=== PATIENT | female | born 1995 | race Caucasian/White ===

== ENCOUNTER 2020-02-01 09:43 | Outpatient (CLI) | payer MEDICAID ==
[2020-02-01 10:40] LABS: ABSOLUTE EOSINOPHILS # (AUTO) 0.5 10^3/uL (0.0-0.6); ABSOLUTE LYMPHOCYTES (AUTO) 1.5 10^3/uL (0.5-4.7); ABSOLUTE MONOCYTES (AUTO) 0.9 10^3/uL (0.1-1.4); ABSOLUTE NEUT (AUTO) 9.3 10^3/uL (1.7-8.2); BASOPHILS % (AUTO) 0.4 % (0-2); EOSINOPHILS % (AUTO) 4.3 % (0-6); HEMATOCRIT 28.3 % (36.0-47.0); HEMOGLOBIN 9.8 g/dL (12.0-15.5); LYMPHOCYTES % (AUTO) 12.3 % (13-45); MEAN CORPUSCULAR HGB CONC 34.8 g/dL (32.0-36.0); MEAN CORPUSCULAR VOLUME 78 fl (80-97); MONOCYTES % (AUTO) 7.5 % (3-13); PLATELET COUNT 153 10^3/uL (150-450); RED BLOOD COUNT 3.64 10^6/uL (3.72-5.28); RED CELL DISTRIBUTION WIDTH 14.6 % (11.5-14.0); SEGMENTED NEUTROPHILS % (AUTO) 75.5 % (42-78); TOTAL CELLS COUNTED % (AUTO) 100 %; WHITE BLOOD COUNT 12.3 10^3/uL (4.0-10.5)
[2020-02-01] MEDS ORDERED: ACETAMINOPHEN 325 MG TABLET PO ONE (10:43)
[2020-02-01] MEDS ORDERED: ACETAMINOPHEN 325 MG TABLET ONE (10:44)
[2020-02-01 11:04] LABS: UR PRO/CREAT RATIO RESULT 0.2 mg/mg (0.0-0.2); URINE CREATININE 54.4 mg/dL (16-327); URINE PROTEIN 10.9 mg/dL (<12)
[2020-02-01 11:08] LABS: ALBUMIN 2.7 g/dL (3.5-5.0); ALKALINE PHOSPHATASE 110 U/L (38-126); ANION GAP 7 (5-19); ASPARTATE AMINO TRANSFERASE 25 U/L (14-36); BILIRUBIN,DIRECT 0.1 mg/dL (0.0-0.4); BILIRUBIN,TOTAL 0.4 mg/dL (0.2-1.3); BLOOD UREA NITROGEN 6 mg/dL (7-20); CALCIUM 8.6 mg/dL (8.4-10.2); CARBON DIOXIDE 21 mmol/L (22-30); CHLORIDE 106 mmol/L (98-107); GLUCOSE 80 mg/dL (75-110); POTASSIUM 3.9 mmol/L (3.6-5.0); TOTAL PROTEIN 5.2 g/dL (6.3-8.2); URIC ACID 4.6 mg/dL (2.5-6.2)
[2020-02-01 11:12] LABS: APPEARANCE,URINE TURBID; BILIRUBIN,URINE NEGATIVE (NEGATIVE); COLOR,URINE STRAW; GLUCOSE, URINE NEGATIVE (NEGATIVE); KETONES,URINE NEGATIVE (NEGATIVE); PROTEIN,URINE NEGATIVE (NEGATIVE); URINE SPECIFIC GRAVITY 1.013; UROBILINOGEN,URINE NEGATIVE mg/dL (<2.0)
[2020-02-01 11:13] LABS: ADD MANUAL MICROSCOPIC YES; BACTERIA,URINE 4+ /HPF; LEUKOCYTE ESTERASE,URINE LARGE (NEGATIVE); NITRITE,URINE NEGATIVE (NEGATIVE); RBC,URINE NONE SEEN /HPF; WBC,URINE >100 /HPF
[2020-02-01 11:18] LABS: URINE AMPHETAMINES SCREEN NEGATIVE; URINE BARBITURATES SCREEN NEGATIVE; URINE BENZODIAZEPINES SCREEN NEGATIVE; URINE COCAINE SCREEN NEGATIVE; URINE MARIJUANA (THC) SCREEN NEGATIVE; URINE METHADONE SCREEN NEGATIVE; URINE PHENCYCLIDINE SCREEN NEGATIVE
--- NOTE | 2020-02-01 11:50 | Non Stress Test Report ---
Non Stress Test Datetime Report Generated by CPN: 02/01/2020 11:50 INDICATION Indication for Study (NST) Other: Pre E workup VITAL SIGNS Temperature - NST: 98.0 Pulse - NST: 94 RESP - NST: 18 NBPSYS NST: 146 NBPDIA NST: 81 MONITORING Monitor Explained: Monitor Explained; Test Explained; Patient Verbalized Understanding Time on Monitor: 02/01/2020 10:02 Time off Monitor: 02/01/2020 11:28 NST Duration: 86 NST INTERVENTIONS NST Interventions: PO Hydration Physician Notified NST: C. Birmingham, CNM BABY A: [id number] BABY A Movement : Present Contraction Frequency : none FHR Baseline : 135 Accelerations : 15X15 Decelerations : None Variability : Moderate 6-25bpm NST Review: Meets Criteria for Reactive NST NST Review and Verified By : Toy James RN NST COMMENTS NST Comments: C. Birmingham, CNM on unit reviewed strip. NST REPORT Report Trigger: Send Report
== END 2020-02-01 11:43 | disposition home or self-care (01) ==
LOC: LC 09:43
PROVIDERS: ATTEND Obstetrics & Gynecology
DX: Z36.89 Encounter for other specified antenatal screening (principal); Z3A.35 35 weeks gestation of pregnancy
CPT/HCPCS: 59025; 36415; 83615; 84156; 84550; 82570; 85025; 80053; 81001; 80307; 82239; J3490

== ENCOUNTER → 2020-02-09 | Outpatient (CLI) | payer MEDICAID ==
[2020-02-09 11:52] LABS: APPEARANCE,URINE CLEAR; BILIRUBIN,URINE NEGATIVE (NEGATIVE); COLOR,URINE YELLOW; GLUCOSE, URINE NEGATIVE (NEGATIVE); KETONES,URINE NEGATIVE (NEGATIVE); LEUKOCYTE ESTERASE,URINE NEGATIVE (NEGATIVE); NITRITE,URINE NEGATIVE (NEGATIVE); PROTEIN,URINE NEGATIVE (NEGATIVE); URINE SPECIFIC GRAVITY 1.009; UROBILINOGEN,URINE NEGATIVE mg/dL (<2.0)
[2020-02-09 12:01] LABS: URINE AMPHETAMINES SCREEN NEGATIVE; URINE BARBITURATES SCREEN NEGATIVE; URINE BENZODIAZEPINES SCREEN NEGATIVE; URINE COCAINE SCREEN NEGATIVE; URINE MARIJUANA (THC) SCREEN NEGATIVE; URINE METHADONE SCREEN NEGATIVE
[2020-02-09 12:06] LABS: URINE PHENCYCLIDINE SCREEN NEGATIVE
--- NOTE | 2020-02-09 12:38 | Non Stress Test Report ---
Non Stress Test Datetime Report Generated by CPN: 02/09/2020 12:38 DEMOGRAPHIC EGA NST: 37.0 INDICATION Indication for Study (NST) Other: Possible SROM, >32 weeks IUP MONITORING Monitor Explained: Monitor Explained; Test Explained; Patient Verbalized Understanding Time on Monitor: 02/09/2020 11:11 Time off Monitor: 02/09/2020 12:21 NST Duration: 70 NST INTERVENTIONS NST Interventions: PO Hydration Physician Notified NST: A Santiago CNM BABY A: [id number] BABY A Movement : Present Contraction Frequency : irritability FHR Baseline : 135 Accelerations : 15X15 Decelerations : None Variability : Moderate 6-25bpm NST Review: Meets Criteria for Reactive NST NST Review and Verified By : JNiebuhr,RN NST Results: Reactive NST REPORT Report Trigger: Send Report
== END ==
LOC: LC 10:52
PROVIDERS: ATTEND Obstetrics & Gynecology
DX: Z36.89 Encounter for other specified antenatal screening (principal); Z3A.37 37 weeks gestation of pregnancy
CPT/HCPCS: 59025; 80307; 81001; 84112

== ENCOUNTER 2020-02-20 21:34 | Inpatient (IN) | payer MEDICAID ==
[2020-02-20] MEDS ORDERED: RINGERS SOLUTION,LACTATED 1,000 ML IV PRN (22:22)
[2020-02-20] MEDS ORDERED: AMPICILLIN SOD INJ 2 GM VIAL ONE (22:29)
[2020-02-20 22:52] LABS: ABSOLUTE BASOPHILS # (AUTO) 0.1 10^3/uL (0.0-0.2); ABSOLUTE EOSINOPHILS # (AUTO) 0.5 10^3/uL (0.0-0.6); ABSOLUTE LYMPHOCYTES (AUTO) 1.7 10^3/uL (0.5-4.7); ABSOLUTE MONOCYTES (AUTO) 0.8 10^3/uL (0.1-1.4); ABSOLUTE NEUT (AUTO) 10.2 10^3/uL (1.7-8.2); BASOPHILS % (AUTO) 0.4 % (0-2); EOSINOPHILS % (AUTO) 3.5 % (0-6); HEMATOCRIT 32.2 % (36.0-47.0); HEMOGLOBIN 10.8 g/dL (12.0-15.5); LYMPHOCYTES % (AUTO) 12.8 % (13-45); MEAN CORPUSCULAR HEMOGLOBIN 25.7 pg (27.0-33.4); MEAN CORPUSCULAR HGB CONC 33.5 g/dL (32.0-36.0); MEAN CORPUSCULAR VOLUME 77 fl (80-97); MONOCYTES % (AUTO) 6.3 % (3-13); PLATELET COUNT 218 10^3/uL (150-450); RED BLOOD COUNT 4.19 10^6/uL (3.72-5.28); RED CELL DISTRIBUTION WIDTH 16.3 % (11.5-14.0); TOTAL CELLS COUNTED % (AUTO) 100 %; WHITE BLOOD COUNT 13.2 10^3/uL (4.0-10.5)
[2020-02-20 22:54] LABS: APPEARANCE,URINE SLIGHTLY-CLOUDY; BILIRUBIN,URINE NEGATIVE (NEGATIVE); COLOR,URINE YELLOW; GLUCOSE, URINE NEGATIVE (NEGATIVE); KETONES,URINE NEGATIVE (NEGATIVE); LEUKOCYTE ESTERASE,URINE MODERATE (NEGATIVE); NITRITE,URINE NEGATIVE (NEGATIVE); PROTEIN,URINE NEGATIVE (NEGATIVE); URINE SPECIFIC GRAVITY 1.004; UROBILINOGEN,URINE NEGATIVE mg/dL (<2.0)
[2020-02-20] MEDS ORDERED: RINGERS SOLUTION,LACTATED 1,000 ML IV ONE (23:00)
[2020-02-20] MEDS ORDERED: AMPICILLIN SODIUM 2 GM in NORMAL SALINE 100 ML IV ONE (23:00)
[2020-02-20 23:08] LABS: URINE AMPHETAMINES SCREEN NEGATIVE; URINE BARBITURATES SCREEN NEGATIVE; URINE BENZODIAZEPINES SCREEN NEGATIVE; URINE COCAINE SCREEN NEGATIVE; URINE MARIJUANA (THC) SCREEN NEGATIVE; URINE METHADONE SCREEN NEGATIVE; URINE PHENCYCLIDINE SCREEN NEGATIVE
[2020-02-20] MEDS ORDERED: OXYTOCIN 10 UNIT/ML VIAL ONE (23:22)
[2020-02-20] MEDS ORDERED: OXYTOCIN/0.9 % SODIUM CHLORIDE 30 UNIT/500 ML RTUINJ ONE (23:22)
[2020-02-20] MEDS ORDERED: LIDOCAINE 1% INJ-PF (10 MG/ML) 30 ML SDV ONE (23:22)
[2020-02-20] MEDS ORDERED: MISOPROSTOL 0.2 MG TABLET ONE (23:22)
--- NOTE | 2020-02-20 23:29 | Admission Physical ---
Datetime Report Generated by CPN: 02/20/2020 23:28 CURRENT ADMISSION Chief Complaint: Suspected Ruptured Membranes Indication for Induction: Not Applicable Admit Impression : Term, Intrauterine ; Active Labor Admit Plan: Admit to Unit; Initiate Labor Protocol ALLERGIES Medication Allergies: No Medication Allergies: No Known Allergies (02/09/2020) Latex: No Latex Allergies Food Allergies: none Environmental Allergies: none OBSTETRICAL HISTORY EDC: 03/01/2020 00:00 : 2 Para: 1 Term: 1 : 0 SAB: 0 IAB: 0 Livin Gestational Diabetes: No Rh Sensitization: No Incompetent Cervix: No FABIÁN: No Infertility: No ART Treatment: No Uterine Anomaly: No IUGR: No Hx Previous C/S: No Macrosomia: No Hx Loss/Stillborn: No PIH: No Hx : No Placenta Previa/Abruption: No Depression/PP Depression: Yes PTL/PROM: No Post Hemorrhage: No Current Procedures: Ultrasound; NST Obstetrical History Comments: 06/05/2019, 40 weeks, vaginal, male, epidural G2-current SEE RECORDS Alcohol: No Marijuana : No Cocaine: No Other Illicit Drugs: No Cigarettes: Current Everyday Smoker. [id number] Cigarette Comments: juul twice a day MEDICAL HISTORY Diabetes: No Blood Transfusion: No Pulmonary Disease (Asthma, TB): Yes Breast Disease: No Hypertension: No Hemmer Lockstitch Surgery: No Heart Disease: No Hosp/Surgery: Yes Autoimmune Disorder: No Anesthetic Complications: No Kidney Disease: No Abnormal Pap Smear: No Neuro/Epilepsy: No Psychiatric Disorders: No Other Medical Diseases: No Hepatitis/Liver Disease: No Significant Family History: No Varicosities/Phlebitis: No Trauma/Violence : No Medical History Comments: multiple oral surgeries INFECTIOUS HISTORY Gonorrhea: No Genital Herpes: No Chlamydia: No Tuberculosis: No Syphilis: No Hepatitis: No HIV/AIDS Exposure: No Rash or Viral Illness: No HPV: No PHYSICAL EXAM General: Normal HEENT: Normal Neurologic: Normal Thyroid: Normal Heart: Normal Lungs: Normal Breast: Deferred Back: Normal Abdomen: Normal Genitourinary Exam: Normal Extremities: Normal DTRs: Normal Pelvic Type: Adequate Vital Signs: Reviewed VAGINAL EXAM Dilatation: 2 Effacement: 50 Station: -2 MEMBRANES Pooling: Positive Membranes: Ruptured FETUS A EGA: 38.4 Monitoring: External US FHR- Baseline: 140 Variability: Moderate 6-25bpm Accelerations: 15X15 Decelerations: None FHR Category: Category I Presentation: Vertex Admit Comment: admit for labor PLANS FOR LABOR AND DELIVERY Labor and Delivery: None Pain Management: Epidural Feeding Preference: Breast Benefit of Breast Feed Discussed: Yes Circumcision: Yes INFORMED CONSENT Signature: with User ID: [email or web address]
[2020-02-21] MEDS ORDERED: OXYTOCIN/0.9 % SODIUM CHLORIDE 30 UNIT/500 ML RTUINJ IV PRN ×2 (01:54→15:06)
[2020-02-21] MEDS ORDERED: AMPICILLIN SOD INJ 1 GM VIAL ONE ×2 (04:47→11:03)
[2020-02-21] MEDS ORDERED: NALBUPHINE HCL INJ 10 MG/1 ML AMPULE INJ ONE (08:14)
[2020-02-21] MEDS ORDERED: NALBUPHINE HCL INJ 10 MG/1 ML AMPULE ONE (08:18)
[2020-02-21] MEDS ORDERED: EPHEDRINE SULFATE INJ 50 MG/1 ML AMPULE ONE (10:44)
[2020-02-21] MEDS ORDERED: BUPIVACAINE HCL 0.25 % INJ/PF (2.5 MG/1 ML) 30 ML VIAL ONE (10:45)
[2020-02-21] MEDS ORDERED: FENTANYL/BUPIVACAINE/NS/PF 300 MCG/150 ML RTUINJ EPI ONE (10:45)
[2020-02-21] MEDS ORDERED: LIDOCAINE 1% INJ-PF (10 MG/ML) 30 ML SDV ONE (11:50)
[2020-02-21] MEDS ORDERED: METHYLERGONOVINE MALEATE INJ/PF 0.2 MG/1 ML AMPULE ONE (15:01)
[2020-02-21] MEDS ORDERED: MAGNESIUM HYDROXIDE SUSP 30 ML UDCUP PO PRN (15:06)
[2020-02-21] MEDS ORDERED: PROMETHAZINE HCL INJ 25 MG/1 ML VIAL IV PRN (15:06)
[2020-02-21] MEDS ORDERED: DIPH/PERTUSS(ACELL)/TETANUS VAC/PF 0.5 ML SYR (>=10YO) IM PRN (15:06)
[2020-02-21] MEDS ORDERED: PROMETHAZINE HCL 25 MG SUPP.RECT PR PRN (15:06)
[2020-02-21] MEDS ORDERED: GLYCERIN/WITCH HAZEL LEAF 1 EACH MED..WIPE TP PRN (15:06)
[2020-02-21] MEDS ORDERED: DIPHENHYDRAMINE HCL 25 MG CAPSULE PO PRN (15:06)
[2020-02-21] MEDS ORDERED: MISOPROSTOL 0.2 MG TABLET PR PRN (15:06)
[2020-02-21] MEDS ORDERED: MEASLES,MUMPS&RUBELLA VACC/PF 0.5 ML VIAL SUBCUT PRN (15:06)
[2020-02-21] MEDS ORDERED: PROMETHAZINE HCL 25 MG TABLET PO PRN (15:06)
[2020-02-21] MEDS ORDERED: BENZOCAINE/MENTHOL AEROSOL SPRAY 56 ML TOP PRN (15:06)
[2020-02-21] MEDS ORDERED: PSEUDOEPHEDRINE HCL 30 MG TABLET PO PRN (15:06)
[2020-02-21] MEDS ORDERED: DIBUCAINE 1% OINTMENT 28 GM TP PRN (15:06)
[2020-02-21] MEDS ORDERED: ZOLPIDEM TARTRATE 5 MG TABLET PO PRN (15:06)
[2020-02-21] MEDS ORDERED: ACETAMINOPHEN 650 MG SUPP.RECT PR PRN (15:06)
[2020-02-21] MEDS ORDERED: ACETAMINOPHEN WITH CODEINE #3 TABLET PO PRN ×2 (15:06)
[2020-02-21] MEDS ORDERED: NA PHOS,M-B/NA PHOS,DI-BA (ADULT) 133 ML ENEMA PR PRN (15:06)
[2020-02-21] MEDS ORDERED: BENZOCAINE/MENTHOL AEROSOL SPRAY 56 ML ONE (16:05)
[2020-02-21] MEDS ORDERED: IBUPROFEN 800 MG TABLET ONE (16:05)
[2020-02-21] MEDS: FERROUS SULFATE 325 MG TABLET PO SCH (18:06)
[2020-02-21] MEDS: DOCUSATE SODIUM 100 MG CAPSULE PO SCH (18:06)
[2020-02-21] MEDS: AMPICILLIN SODIUM 1 GM in NORMAL SALINE 50 ML IV SCH (18:46)
[2020-02-21] MEDS: FAMOTIDINE 20 MG TABLET PO SCH (22:42)
[2020-02-21] MEDS: IBUPROFEN 800 MG TABLET PO SCH (22:43)
[2020-02-22] MEDS: IBUPROFEN 800 MG TABLET PO SCH ×3 (05:21→21:22)
[2020-02-22 07:36] LABS: HEMATOCRIT 27.7 % (36.0-47.0); HEMOGLOBIN 9.3 g/dL (12.0-15.5); MEAN CORPUSCULAR HEMOGLOBIN 25.9 pg (27.0-33.4); MEAN CORPUSCULAR HGB CONC 33.5 g/dL (32.0-36.0); MEAN CORPUSCULAR VOLUME 77 fl (80-97); PLATELET COUNT 226 10^3/uL (150-450); RED BLOOD COUNT 3.59 10^6/uL (3.72-5.28); RED CELL DISTRIBUTION WIDTH 16.5 % (11.5-14.0)
[2020-02-22] MEDS: SENNOSIDES/DOCUSATE 8.6-50 MG 1 EACH TABLET PO SCH (09:38)
[2020-02-22] MEDS: PRENATAL VITAMIN W DHA CAPSULE PO SCH (09:38)
[2020-02-22] MEDS: FERROUS SULFATE 325 MG TABLET PO SCH ×2 (09:38→17:29)
[2020-02-22] MEDS: DOCUSATE SODIUM 100 MG CAPSULE PO SCH ×2 (09:38→17:29)
[2020-02-22] MEDS: FAMOTIDINE 20 MG TABLET PO SCH ×2 (09:38→21:22)
--- NOTE | 2020-02-22 11:41 | PDOC PROGRESS REPORT ---
Subjective-OB Progress Note for:: 02/22/20 Subjective: 24yo G2 now P2 s/p ppd 1 ambulating, voiding without difficulty. Reports pain well controlled with medication, denies any concerns today. Pt in and out of sleep, reports baby in the NICU. Physical Exam (OB) Vital Signs: Temp Pulse Resp BP Pulse Ox 97.7 F 94 18 121/63 99 02/22/20 07:13 02/22/20 07:13 02/22/20 07:13 02/22/20 08:10 02/22/20 07:13 Intake & Output 02/21/20 02/22/20 02/23/20 06:59 06:59 06:59 Weight 118.3 kg - General General Appearance: Appears well In distress: None - PIH/Pre-Eclampsia Headache: Absent - Episiotomy/Laceration Site Condition: N/A - Lochia Lochia Amount: Small 10-25 ml Lochia Color: Rubra/Red - Abdomen Description: Soft Hernia Present: No Fundal Description: Firm, Midline Fundal Height: u/u - u/2 - Respiratory Respiratory Status: No respiratory distress - Extremities Upper extremity: Normal inspection Lower extremities: Normal inspection - Neurological Cognition: Normal Orientation: AAOx4 - Psychological Associated symptoms: Normal affect, Normal mood Objective-Diagnostic Laboratory: 02/22/20 06:43 02/22/20 06:43 WBC 14.0 H RBC 3.59 L Hgb 9.3 L Hct 27.7 L MCV 77 L MCH 25.9 L MCHC 33.5 RDW 16.5 H Plt Count 226 Assessment and Plan(PN) - Assessment and Plan (1) Anemia complicating , third trimester Is this a current diagnosis for this admission?: Yes Plan: increase dietary iron and FeSO4 BID (2) Prolonged rupture of membranes, greater than 24 hours, delivered Is this a current diagnosis for this admission?: Yes Plan: delivered (3) Smoker Is this a current diagnosis for this admission?: Yes Plan: cessation encouraged (4) Shoulder dystocia during labor and delivery, delivered Is this a current diagnosis for this admission?: Yes Plan: baby remains in NICU, stable - Time Spent with Patient Time with patient: Less than 15 minutes Smoking Education Provided: Over 3 minutes Medications reviewed and adjusted accordingly: Yes - Disposition Anticipated Discharge: Home Within: within 24 hours
[2020-02-23] MEDS: IBUPROFEN 800 MG TABLET PO SCH ×2 (05:06→14:57)
--- NOTE | 2020-02-23 09:52 | PDOC DISCHARGE SUMMARY ---
Impression - Admit/DC Date/PCP Admission Date/Primary Care Provider: 02/20/20 22:23 HUGO LIANG MD Discharge Date: 02/23/20 - Discharge Diagnosis (1) Prolonged rupture of membranes, greater than 24 hours, delivered Is this a current diagnosis for this admission?: Yes (2) Shoulder dystocia during labor and delivery, delivered Is this a current diagnosis for this admission?: Yes (3) Smoker Is this a current diagnosis for this admission?: Yes - Additional Information Discharge Diet: Regular Discharge Activity: Balance Activity w/Rest, Pelvic Rest Referrals: HUGO LIANG MD [Primary Care Provider] - Prescriptions: Fluticasone/Salmeterol [Advair 500-50 Diskus 14 Dose/Diskus] 1 inh IH Q12H #1 inhaler Ibuprofen [Motrin 800 mg Tablet] 800 mg PO Q8HP PRN #60 tablet PRN Reason: Albuterol Sulfate [Proair Digihaler] 90 mcg IH Q4HP PRN #1 aer.pw.bas PRN Reason: Home Medications: Duloxetine HCl [Cymbalta] 1 tab PO DAILY 02/09/20 Vit No.130/Iron/Folic [ Tablet] 1 each PO DAILY 02/09/20 Albuterol Sulfate [Proair Digihaler] 90 mcg IH Q4HP PRN #1 aer.pw.bas 02/23/20 Fluticasone/Salmeterol [Advair 500-50 Diskus 14 Dose/Diskus] 1 inh IH Q12H #1 inhaler 02/23/20 Ibuprofen [Motrin 800 mg Tablet] 800 mg PO Q8HP PRN #60 tablet 02/23/20 Results Laboratory Results: WBC 14.0 10^3/uL (4.0-10.5) H 02/22/20 06:43 RBC 3.59 10^6/uL (3.72-5.28) L 02/22/20 06:43 Hgb 9.3 g/dL (12.0-15.5) L 02/22/20 06:43 Hct 27.7 % (36.0-47.0) L 02/22/20 06:43 MCV 77 fl (80-97) L 02/22/20 06:43 MCH 25.9 pg (27.0-33.4) L 02/22/20 06:43 MCHC 33.5 g/dL (32.0-36.0) 02/22/20 06:43 RDW 16.5 % (11.5-14.0) H 02/22/20 06:43 Plt Count 226 10^3/uL (150-450) 02/22/20 06:43 Lymph % (Auto) 12.8 % (13-45) L 02/20/20 22:41 Becker % (Auto) 6.3 % (3-13) 02/20/20 22:41 Eos % (Auto) 3.5 % (0-6) 02/20/20 22:41 Baso % (Auto) 0.4 % (0-2) 02/20/20 22:41 Absolute Neuts (auto) 10.2 10^3/uL (1.7-8.2) H 02/20/20 22:41 Absolute Lymphs (auto) 1.7 10^3/uL (0.5-4.7) 02/20/20 22:41 Absolute Monos (auto) 0.8 10^3/uL (0.1-1.4) 02/20/20 22:41 Absolute Eos (auto) 0.5 10^3/uL (0.0-0.6) 02/20/20 22:41 Absolute Basos (auto) 0.1 10^3/uL (0.0-0.2) 02/20/20 22:41 Seg Neutrophils % 77.0 % (42-78) 02/20/20 22:41 Urine Color YELLOW 02/20/20 21:45 Urine Appearance SLIGHTLY-CLOUDY 02/20/20 21:45 Urine pH 7.0 (5.0-9.0) 02/20/20 21:45 Ur Specific [place] 1.004 02/20/20 21:45 Urine Protein NEGATIVE mg/dL (NEGATIVE) 02/20/20 21:45 Urine Glucose (UA) NEGATIVE mg/dL (NEGATIVE) 02/20/20 21:45 Urine Ketones NEGATIVE mg/dL (NEGATIVE) 02/20/20 21:45 Urine Blood SMALL (NEGATIVE) H 02/20/20 21:45 Urine Nitrite NEGATIVE (NEGATIVE) 02/20/20 21:45 Urine Bilirubin NEGATIVE (NEGATIVE) 02/20/20 21:45 Urine Urobilinogen NEGATIVE mg/dL (<2.0) 02/20/20 21:45 Ur Leukocyte Esterase MODERATE (NEGATIVE) H 02/20/20 21:45 Urine WBC (Auto) 4 /HPF 02/20/20 21:45 Urine RBC (Auto) 1 /HPF 02/20/20 21:45 Urine Bacteria (Auto) TRACE /HPF 02/20/20 21:45 Squamous Epi Cells Auto 2 /HPF 02/20/20 21:45 Urine Ascorbic Acid NEGATIVE (NEGATIVE) 02/20/20 21:45 Membranes Rupture POSITIVE (NEGATIVE) H 02/20/20 22:00 Urine Opiates Screen NEGATIVE 02/20/20 21:45 Urine Methadone Screen NEGATIVE 02/20/20 21:45 Ur Barbiturates Screen NEGATIVE 02/20/20 21:45 Ur Phencyclidine Scrn NEGATIVE 02/20/20 21:45 Ur Amphetamines Screen NEGATIVE 02/20/20 21:45 U Benzodiazepines Scrn NEGATIVE 02/20/20 21:45 Urine Cocaine Screen NEGATIVE 02/20/20 21:45 U Marijuana (THC) Screen NEGATIVE 02/20/20 21:45 RPR NONREACTIVE (NONREACTIVE) 02/20/20 22:41 Blood Type A POSITIVE 02/20/20 22:41 Antibody Screen NEGATIVE 02/20/20 22:41 Plan Plan of Treatment: follow up in one week at [facility] for blood pressure check
[2020-02-23] MEDS: PRENATAL VITAMIN W DHA CAPSULE PO SCH (10:10)
[2020-02-23] MEDS: FERROUS SULFATE 325 MG TABLET PO SCH (10:10)
[2020-02-23] MEDS: FAMOTIDINE 20 MG TABLET PO SCH (10:10)
[2020-02-23] MEDS: DOCUSATE SODIUM 100 MG CAPSULE PO SCH (10:10)
[2020-02-23] MEDS: SENNOSIDES/DOCUSATE 8.6-50 MG 1 EACH TABLET PO SCH (10:10)
[2020-02-23 11:48] VITALS: BP 121/63
--- NOTE | 2020-02-24 10:55 | Delivery Summary ---
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: ST Cristin Additional Personnel: : Sam PATEL RN/ Sam VELARDE RN MATERNAL INFORMATION Delivery Anesthesia: Epidural Medications After Delivery: Pitocin 30 Units in 500ml NS/D5W; Methergine 0.2mg IM; Cytotec 1000mcg Per Rectum/Vagina Delivery QBL: 450 Maternal Complications: Other Complication Details: SROM 02/19 @ 0200 Provider Comments: Baby rotated and pt started pushing, at delivery of vtx ROBBI,gentle lateral traction without delivery of vertex, turtle sign, shoulder dystocia, call for help and Phill Paulino and suprapubic pressure with baby rotating 180 degrees to CHAVEZ, baby delivered withour difficulty, placed on mothers abd, cord clamped and cut by FOB, given to nursery Spont delivery of grossly nl intact large placenta, 3 VC, sent to lab with cord blood uterine atony rsolved with massage, Pitocin, cytotec 1000mcg and Methergine 0.2 IM Baby to nursery for evaluation, moving all extremities, cpap by nurdsery staff mom plans to breastfeed LABOR SUMMARY [facility]: 03/01/2020 00:00 No. Babies in Womb: 1 Attempted: No Labor Anesthesia: Epidural LABOR INFORMATION Reason for Induction: Not Applicable Onset of Labor: 02/21/2020 06:30 Complete Dilatation: 02/21/2020 14:30 Oxytocin: Augmentation Group B Beta Strep: Positive Antibiotics # of Doses: 3 Antibiotics Time of Last Dose: 1108 Name of Antibiotic Given: AMPICILLIN Steroids Given: None Reason Steroids Not Administered: Not Applicable MEMBRANES Membranes Rupture Method: Artificial Membranes Rupture Method: Spontaneous Rupture of Membranes: 02/20/2020 02:00 Length of Rupture (hr): 36.82 Amniotic Fluid Color: Moderate Meconium Amniotic Fluid Color: Clear Amniotic Fluid Amount: Small Amniotic Fluid Odor: Normal STAGES OF LABOR Stage 1 hr: 8 Stage 1 min: 0 Stage 2 hr: 0 Stage 2 min: 19 Stage 3 hr: 0 Stage 3 min: 7 Total Time in Labor hr: 8 Total Time in Labor min: 26 VAGINAL DELIVERY Episiotomy: None Laceration #1: None Laceration Extension #1: N/A Laceration Repair: Not Applicable Sponge Count Correct: N/A Sharps Count Correct: N/A BABY A INFORMATION Delivery Date/Time: 02/21/2020 14:49 Method of Delivery: Vaginal Method of Delivery: Vaginal Nurse Controlled Delivery: No Born in Route : No : N/A Forceps: N/A Vacuum Extraction: N/A Shoulder Dystocia : Yes SHOULDER DYSTOCIA BABY A Delivery of Head: 02/21/2020 14:48 Time Head to Delivery : 1.0 1st Intervention to Resolve: McRobert's Maneuver 2nd Intervention to Resolve: Suprapubic Pressure Verify NO Fundal Pressure: No Fundal Pressure Applied Arm Under Symphisis at Del: Right PRESENTATION/POSITION BABY A Presentation: Cephalic Cephalic Presentation: Vertex Vertex Position: Right Occipital Anterior Breech Presentation: N/A PLACENTA INFORMATION BABY A Placenta Delivery Time : 02/21/2020 14:56 Placenta Method of Delivery: Spontaneous Placenta Method of Delivery: Spontaneous Placenta Status: Delivered SCORES BABY A Heart Rate 1 min: >100 bpm Resp Effort 1 min: Slow, Irregular Reflex Irritability 1 min: Grimace Muscle Tone 1 min: Some Flexion of Extremities Color 1 min: Blue/Pale SCORE 1 MIN: 5 Heart Rate 5 min: >100 bpm Resp Effort 5 min: Good Cry Reflex Irritability 5 min: Cough or Sneeze or Pulls Away Muscle Tone 5 min: Some Flexion of Extremities Color 5 min: Body [place], Extremities Blue SCORE 5 MIN: 8 INFORMATION BABY A Gestational Age at Delivery: 38.5 Gestational Status: Early Term- 37- 38.6 Weeks Outcome : Liveborn Condition : Stable Sex: Male Sex: Male IDENTIFICATION BABY A Verification Date/Time: 02/21/2020 15:08 ID Band Number: [id number] Mother's Name Verified: Yes RN Verifying : BERNARD GUILLORY, RN/ R PREM RN WEIGHT/LENGTH BABY A Infant Birthweight (gm): 3826 Weight (lb): 8 Weight (oz): 7 Length (in): 20.50 Infant Length (cm): 52.07 CORD INFORMATION BABY A No. Cord Vessels: 3 Nuchal Cord : N/A Cord Blood Taken: Yes-For Storage (Mom's Blood type +) ASSESSMENT BABY A Infant Complications: Meconium; Shoulder Dystocia Physical Findings at Delivery: Within Normal Limits; Molding of the Head Skin to Skin: No Infant Care By: Nakul STARR RN Transferred To: NICU BABY B INFORMATION : N/A
== END 2020-02-23 16:20 | disposition home or self-care (01) | DRG 807 ==
LOC: LC 21:34 → LR 22:23 → 2S 02-21 17:54
PROVIDERS: ADMIT Obstetrics & Gynecology; ATTEND Obstetrics & Gynecology
PROC: 10E0XZZ Delivery of Products of Conception, External Approach (ICD-10-PCS; principal; 2020-02-20)
DX: O42.113 Preterm premature rupture of membranes, onset of labor more than 24 hours following rupture, third trimester (principal); Z37.0 Single live birth; O66.0 Obstructed labor due to shoulder dystocia; O99.334 Smoking (tobacco) complicating childbirth; F17.210 Nicotine dependence, cigarettes, uncomplicated; O99.02 Anemia complicating childbirth; D50.9 Iron deficiency anemia, unspecified; Z3A.38 38 weeks gestation of pregnancy; O99.824 Streptococcus B carrier state complicating childbirth
CPT/HCPCS: 1967; 36415; 80307; 81001; 84112; 85025; 85027; 86592; 86850; 86900; 86901; 88307; J0290; J2210; J2300; J2590; J3010; J3490; J7050